=== PATIENT | male | born 1985 | race Caucasian/White ===

== ENCOUNTER 2016-12-18 23:20 | Emergency (ER) | payer SELFPAY ==
[~2016-12-18] VITALS: Ht 188 cm; Wt 76.0 kg
[2016-12-18 23:27] VITALS: BP 129/96; PULSE 80; RESP 16; TEMP 98.3; O2SAT 99
[2016-12-19 00:14] VITALS: BP 129/96; PULSE 80; RESP 18; TEMP 98.3; O2SAT 99
== END 2016-12-19 01:03 | disposition left against medical advice (07) ==
LOC: PHED 23:20
DX: R21 Rash and other nonspecific skin eruption (principal); Z53.21 Procedure and treatment not carried out due to patient leaving prior to being seen by health care provider
CPT/HCPCS: 99281